=== PATIENT | female | born 1980 | race Caucasian/White ===

== ENCOUNTER 2024-09-20 09:41 | Emergency (ER) | payer OTHER, SELFPAY ==
--- NOTE | ~2024-09-20 | XR_ITS ---
EXAMINATION: XR shoulder LT min 2V DATE: 09/20/2024 11:24 INDICATION: Left shoulder pain post fall TECHNIQUE: AP internally and externally rotated and transscapular Y views of the left shoulder were o btained. COMPARISON: None FINDINGS: Normal alignment. No fracture. Glenohumeral joint appears normal but is insufficiently profiled to a ccurately assess for joint space narrowing. Mild acromioclavicular osteoarthritis. Soft tissues are u nremarkable. Visualized portions of the lungs are clear. IMPRESSION: Mild left acromioclavicular osteoarthritis. No acute osseous abnormality. Reviewed, dictated and finalized at location A. INE BEADING MACHINE TENDER
--- NOTE | ~2024-09-20 | XR_ITS ---
EXAMINATION: XR hip LT 2V w AP pelvis, XR femur LT min 2V DATE: 09/20/2024 11:24 INDICATION: Left hip pain post fall TECHNIQUE: 1. Anteroposterior view of the pelvis and anteroposterior and frog-leg lateral views of the left hip were obtained. 2. AP and lateral views of the left femur were obtained on overlapping proximal and distal images. COMPARISON: None. FINDINGS: Alignment is normal. No fracture. Normal joint space at the left knee and bilateral hip joints mild o steoarthritis at the bilateral sacroiliac joints. T-shaped IUD projecting over the central pelvis. IMPRESSION: 1. Mild bilateral sacral back osteoarthritis. No acute osseous abnormality in the pelvis or left thig h. 2. IUD in expected position. Reviewed, dictated and finalized at location A. TRUCTION CHECKER IMPRESSION: 1. Mild bilateral sacral back osteoarthritis. No acute osseous abnormality in t he pelvis or left thigh. 2. IUD in expected position.
--- NOTE | ~2024-09-20 | US_ITS ---
EXAMINATION: US pelvic complete DATE: 09/20/2024 12:08 INDICATION: Left lower quadrant abdominal pain. Assess for torsion. TECHNIQUE: Multiple transabdominal sonographic images of the pelvis were obtained. COMPARISON: None. FINDINGS: The uterus measures 9.5 x 6.2 x 6.3 cm. There is a 5.2 cm hypoechoic mass consistent with a uterine f ibroid in the posterior uterine body which is mass effect upon the more anterior endometrial complex. The endometrial complex measures 4 mm in thickness which is normal. There is a second smaller 2.6 si milar hypoechoic fibroid at the uterine fundus. The right ovary measures 2.5 x 1.8 x 1.2 cm. The lef t ovary measures 1.9 x 1.4 x 1.4 cm. Prabhu of flow with arterial waveforms identified in both ovaries o n color Doppler. There is no free fluid in the pelvis. IMPRESSION: 1. Fibroid uterus. Normal ovaries. Reviewed, dictated and finalized at location A. SOFTWARE DEVELOPER
[2024-09-20 10:04] VITALS: BP 114/73; PULSE 75; RESP 20; TEMP 36.4; O2SAT 99
--- NOTE | 2024-09-20 10:53 | ED.GENADULT ---
HPI - General Adult General Chief complaint: Abdominal Pain Stated complaint: left abd pain, left arm pain r/t fall Time Seen by Provider: 09/20/24 10:43 History of Present Illness HPI narrative: 44-year-old female present to the emergency department for evaluation for multiple complaints. Patient states she has been having left lower quadrant pain for the past 4 days. Patient's suspected this was an ovarian cyst. Patient denies any prior history of ovarian cyst. Patient suspects she may have had some hematuria but is unsure. Patient is also complaining of left shoulder and left hip pain after having a ground level fall. Patient reports she was trying to put away her bowling balls when she slipped on the wet garage floor. Related Data Allergies Allergy/AdvReac Type Severity Reaction Status Date / Time No Known Allergies Allergy Verified 09/20/24 12:01 Review of Systems Review of Systems: All systems reviewed & are unremarkable except as noted in HPI and below Exam Narrative: APPEARANCE: Well appearing, no pain, no distress, well-nourished. HEAD: normocephalic, atraumatic. EYES: PERRLA/EOMI, conjunctivae clear. NOSE: Normal no drainage EARS:TMS clear with good light reflex. THROAT: Pharynx clear, no exudate. NECK: Supple. No adenopathy, no masses. RESPIRATORY: Airway patent, respirations nonlabored. Clear to auscultation bilaterally, no rales, rhonchi, wheezing. CARDIOVASCULAR: Regular rate and rhythm without murmurs rubs or gallops. ABDOMINAL: Soft, nontender, nondistended, normal bowel sounds MUSCULOSKELETAL: Tenderness to left hip left femur and left shoulder with limited range of motion of hip and shoulder NEURO: Alert. Cranial nerves II through XII intact. Grossly intact SKIN: Warm, dry. Normal Color Course Vital Signs Vital signs: Vital Signs Temperature 97.6 F 09/20/24 10:04 Pulse Rate 75 09/20/24 10:04 Respiratory Rate 20 09/20/24 10:04 Blood Pressure 114/73 09/20/24 10:04 Pulse Oximetry 99 09/20/24 10:04 Temperature 97.6 F 09/20/24 10:04 Pulse Rate 62 09/20/24 12:52 Respiratory Rate 16 09/20/24 12:52 Blood Pressure 133/80 09/20/24 12:52 Pulse Oximetry 97 09/20/24 12:[address] [facility] Narrative Medical decision making narrative: 44-year-old female presenting to the emergency department for evaluation for left shoulder left hip and left leg pain along with left lower quadrant pain. Patient's urine was concerning for urinary tract infection. Patient was treated with a dose of IV Rocephin. Patient is currently afebrile with a minor leukocytosis of 10.3 and a stable hemoglobin of 13, no significant abnormalities on the CMP UA was positive for infection but negative for red blood cells low concern for ureteral calculi. The ultrasound was ordered due to the left lower quadrant pain and was positive for fibroids but had normal ovaries. Patient was updated on results of workup. Patient is comfortable plan for discharge and close follow-up. Differential Diagnosis Differential Diagnosis: Ovarian torsion, urinary tract infection, ureteral calculi, shoulder injury, knee injury, hip injury Vital Signs Vital Signs: Vital Signs Temperature 97.6 F 09/20/24 10:04 Pulse Rate 75 09/20/24 10:04 Respiratory Rate 20 09/20/24 10:04 Blood Pressure 114/73 09/20/24 10:04 Pulse Oximetry 99 09/20/24 10:04 Temperature 97.6 F 09/20/24 10:04 Pulse Rate 62 09/20/24 12:52 Respiratory Rate 16 09/20/24 12:52 Blood Pressure 133/80 09/20/24 12:52 Pulse Oximetry 97 09/20/24 12:52 Lab Data Lab results reviewed: Yes I reviewed the patient's lab results. 09/20/24 11:25 09/20/24 11:25 Labs: Lab Results 09/20/24 09/20/24 Range/Units 11:25 11:26 WBC 10.3 H (4.5-10.0) K/mm3 RBC 4.34 (4.2-5.4) M/mm3 Hgb 13.0 (12.0-15.0) g/dL Hct 39.0 (37.0-47.0) % MCV 89.9 (80-100) fl MCH 30.0 (26-34) pg MCHC 33.3 (32-36) g/dl RDW 13.2 (11.5-14.5) % Plt Count 412 H (150-375) k/mm3 MPV 8.8 (7.4-10.4) fl Immature Gran % (Auto) 0.4 (0-0.5) % Neut % (Auto) 64.8 (45.5-73.1) % Lymph % (Auto) 21.4 (18.3-44.2) % [place] % (Auto) 9.2 H (2.6-8.5) % Eos % (Auto) 3.3 (0-4.4) % Baso % (Auto) 0.9 (0.2-1.2) % Lymph # (Auto) 2.21 (0.9-3.2) K/mm3 [place] # (Auto) 1.0 H (0.1-0.6) K/mm3 Eos # (Auto) 0.3 (0-0.3) K/mm3 Baso # (Auto) 0.1 (0.0-0.1) K/mm3 Abs Immat Gran (auto) 0.04 H (0.00-0.031) K/mm3 Absolute Neuts (auto) 6.7 (1.3-6.7) K/mm3 Absolute Nucleated RBC 0.000 (0.0-0.012) K/mm3 Nucleated RBC % 0.0 (0.0-0.2) % Sodium 139 (137-145) mmol/L Potassium 4.7 (3.4-5.0) mmol/L Chloride 106 (98-107) mmol/L Carbon Dioxide 20 L (22-30) mmol/L Anion Gap 13 H (4-12) mmol/L BUN 16 (7-17) mg/dL Creatinine 0.47 L (0.7-1.0) mg/dL Estim Creat Clear Calc Not Reportable Estimated GFR > 60 (59 - ) Glucose 95 (65-110) mg/dL Calcium 9.6 (8.4-10.2) mg/dL Total Bilirubin 0.5 (0.2-1.3) mg/dL AST 26 (14-36) U/L ALT 17 (6-35) U/L Alkaline Phosphatase 74 (38-126) U/L Total Protein 8.0 (6.3-8.2) g/dL Albumin 4.6 (3.5-5.1) g/dL Urine Color Yellow (Yellow) Urine Appearance Clear (Clear) Urine pH 5.0 (5.0-9.0) Ur Specific [place] 1.019 (1.001-1.035) Urine Protein Negative (Negative) mg/dL Urine Glucose (UA) Negative (Negative) mg/dL Urine Ketones Negative (Negative) mg/dL Ur Blood (Man) 1+ H (Negative) Urine Nitrate Negative (Negative) Urine Bilirubin Negative (Negative) Urine Urobilinogen 0.2 (<2.0) mg/dL Leukocyte Esterase Rfl 1+ H (Negative) RAVI/UL Urine RBC 0-2 (0-2) /hpf Urine WBC 21-50 H (0-3) /hpf Ur Squamous Epith Cells Occasional (Few) /hpf Urine Bacteria 1+ H /hpf Urine Casts 0-2 Urine Test Negative Imaging Data Radiologist's impression: Impressions Femur X-Ray 09/20/24 11:28 IMPRESSION: 1. Mild bilateral sacral back osteoarthritis. No acute osseous abnormality in the pelvis or left thigh. 2. IUD in expected position. Hip/Pelvis X-Ray 09/20/24 11:28 IMPRESSION: 1. Mild bilateral sacral back osteoarthritis. No acute osseous abnormality in the pelvis or left thigh. 2. IUD in expected position. Shoulder X-Ray 09/20/24 11:30 IMPRESSION: Mild left acromioclavicular osteoarthritis. No acute osseous abnormality. Pelvis Ultrasound 09/20/24 12:13 IMPRESSION: 1. Fibroid uterus. Normal ovaries. Discharge Plan Discharge Clinical Impression: UTI (urinary tract infection), Acute shoulder pain, Acute pain of left hip Patient Disposition: Home, Self-Care Condition: Stable Instructions: Antibiotic Form, Urinary Tract Infection in Women (DC) Additional Instructions: Tylenol and ibuprofen for pain control. Antibiotic as directed until completed. Have close follow-up with your primary care physician. If you have any worsening symptoms then please call or return to the emergency department. Patient Language: Gibraltarian Prescriptions: New cephalexin 500 mg capsule 500 mg PO Q8H 7 Days Qty: 21 0RF Follow-up/Referrals: PHYSICIAN,[facility] [Primary Care Provider] -
--- OUTSIDE RECORDS SUMMARY | 2024-09-20 11:01 | XMS_ITS | Clinical Summary ---
Author Organization [facility] Address [address] [place] [id number] Care Team Providers Care Superintendent Car Construction Name Role Phone Pawan Smiley Bakari MOPHEAD SEWER Primary Care Provider [phone] Allergies Active Allergy Reactions Criticality Noted Date Comments Apixaban Other (see comment) 07/12/2023 ? Blood thinner after D&C- Weakness-UNSURE WHICH BLOOD THINNER IT ACTUALLY IS Medications escitalopram (LEXAPRO) 10 MG tabletIndication s:Depression with anxiety Take 1 tablet (10 mg total) by mouth daily. 30 tablet 1 3 Active Additional Information Patient not taking.Reported on 08/27/2023 amLODIPine (NORVASC) 5 MG tabletIndication s:Primary hypertension Take 1 tablet (5 mg total) by mouth daily. 30 tablet 1 3 Active Additional Information Patient not taking.Reported on 08/27/2023 busPIRone (BUSPAR) 10 MG tabletIndication s:Anxiety Take 1 tablet (10 mg total) by mouth 2 (two) times daily. 60 tablet 1 4 Active Active Problems No known active problems Family History Medical History Relation Comments Cancer Father prostate Heart Attack Mother Relation Status Comments Father Mother Alive Social History Tobacco Use Types Packs/Day Years Used Date Smoking Tobacco: Every Day Cigarettes 0.5 15 Passive Smoke Exposure: Current Smokeless Tobacco: Never Tobacco Cessation:Ready to Q uit: No; Counseling Given: Yes Alcohol Use Standard Drinks/Week Comments Yes 16.7 (1 standard drink = 0.6 oz pure alcohol) beer PHQ-2 Answer Date Recorded Patient Health Questionnaire-2 Score 6 07/12/2023 Comments No Sex and Gender Information Value Date Recorded Sex Assigned at Not on file Legal Sex Female 9:38 AM PLAN EXAMINER Gender Identity Not on file Sexual Orientation Not on file Last Filed Vital Signs Vital Sign Reading Time Taken Comments Blood Pressure 147/90 08/27/2023 3:26 PM PLAN EXAMINER Pulse 69 08/27/2023 3:26 PM PLAN EXAMINER Temperature 36.3 C (97.3 F) 08/27/2023 3:26 PM PLAN EXAMINER Respiratory Rate 20 08/27/2023 3:26 PM PLAN EXAMINER Oxygen Saturation 99% 08/27/2023 3:26 PM PLAN EXAMINER Inhaled Oxygen Concentration - - Weight 65.4 kg (144 lb 3.2 oz) 08/27/2023 3:26 P M PLAN EXAMINER Height 139.7 cm (4' 7 ) 08/27/2023 3:26 PM PLAN EXAMINER Body Mass Index 33.52 08/27/2023 3:26 PM PLAN EXAMINER Plan of Treatment Health Maintenance Due Date Last Done Comments Cervical Cancer Screening Pa p Smear (Age 30 to 64) Every 3 Years 1982 Pneumococcal Vaccine: Pediatrics (0 to 5 Years) and At-Risk Patients (6 to 64 Years) (1 of 2 - PCV) 1988 Hepatitis C 2000 DTaP, Tdap and Td Vaccines ( 1 - Tdap) 2001 Hepatitis B Vaccines (1 of 3 - 19+ 3-dose series) 2001 Cervical Cancer Screening Pa p with HPV Testing (Age 30 to 64) Every 5 Years 2012 Cervical Cancer Screening wi th HPV 2012 Mammogram Screening 2022 COVID-19 Vaccine (3 - 2023-2 5 season) 2024 11/02/2020, 10/10/2020 Influenza Adult (#1) 2024 Annual Physical 07/12/2024 07/12/2023 PHQ-2 (Physician Belkofski) 07/30/2024 07/12/2023 HPV Vaccines Aged Out No longer eligi ble based on patient's age to complete this topic Meningococcal B Vaccine Aged Out No l onger eligible based on patient's age to complete this topic Meningococcal Vaccine Aged Out No noa savage eligible based on patient's age to complete this topic RSV Immunizations Under 20 Months Aged Out No longer eligible b ased on patient's age to complete this topic Insurance [employer] Care Teams Superintendent Car Construction Relationship Specialty Start Date End Date Smiley Villalta NP [address] [place] [address] PCP - General Nurse Practitioner Family 07/12/23
[2024-09-20 11:34] LABS: Basophils Absolute Auto 0.1 K/mm3 (0.0-0.1); Basophils Percent Auto 0.9 % (0.2-1.2); Eosinophils Absolute Auto 0.3 K/mm3 (0-0.3); Eosinophils Percent Auto 3.3 % (0-4.4); Immature Granulocyte Absolute 0.04 K/mm3 (0.00-0.031); Immature Granulocyte Percent A 0.4 % (0-0.5); Lymphocytes Absolute Auto 2.21 K/mm3 (0.9-3.2); Lymphocytes Percent Auto 21.4 % (18.3-44.2); Mean Corpuscular HGB Conc 33.3 g/dl (32-36); Mean Corpuscular Volume 89.9 fl (80-100); Mean Platelet Volume 8.8 fl (7.4-10.4); Monocytes Percent Auto 9.2 % (2.6-8.5); Neutrophils Absolute Auto 6.7 K/mm3 (1.3-6.7); Neutrophils Percent Auto 64.8 % (45.5-73.1); Platelet Count Result 412 k/mm3 (150-375); Red Blood Count 4.34 M/mm3 (4.2-5.4); Red Cell Distribution Width 13.2 % (11.5-14.5); White Blood Count 10.3 K/mm3 (4.5-10.0)
[2024-09-20 11:44] LABS: Add Urine Microscopic? YES; Appearance Urine Clear (Clear); Bacteria Urine 1+ /hpf; Bilirubin Urine Negative (Negative); Blood Urine 1+ (Negative); Color Urine Yellow (Yellow); Glucose Urine UA Negative (Negative); Ketones Urine Negative (Negative); Leukocyte Esterase Ur 1+ LEU/UL (Negative); Nitrate Urine Negative (Negative); Non Pathogenic Casts 0-2; Protein Urine Negative (Negative); RBC Urine 0-2 /hpf (0-2); Specific Grav Ur 1.019 (1.001-1.035); Squamous Epithelial Cell Urine Occasional /hpf (Few); Urobilinogen Urine 0.2 mg/dL (<2.0); WBC Urine 21-50 /hpf (0-3)
[2024-09-20 11:57] LABS: Alanine Aminotransferase 17 U/L (6-35); Albumin Level 4.6 g/dL (3.5-5.1); Alkaline Phosphatase 74 U/L (38-126); Anion Gap 13 mmol/L (4-12); Aspartate Amino Transferase 26 U/L (14-36); Bilirubin,Total 0.5 mg/dL (0.2-1.3); Blood Urea Nitrogen 16 mg/dL (7-17); Calcium 9.6 mg/dL (8.4-10.2); Carbon Dioxide 20 mmol/L (22-30); Chloride 106 mmol/L (98-107); Estimated Glomerular Filt Rate > 60; Glucose 95 mg/dL (65-110); Potassium 4.7 mmol/L (3.4-5.0); Sodium 139 mmol/L (137-145)
--- NOTE | 2024-09-20 12:02 | PC.NURSE ---
Lab called to add on urine test.
[2024-09-20 12:03] VITALS: BP 132/85; PULSE 66; RESP 16; O2SAT 99
[2024-09-20] MEDS: HYDROcodone/acetaminophen (*CRX) 5-325 MG TABLET 1 TAB PO (12:11)
[2024-09-20 12:18] LABS: Pregnancy On Board Control Positive; Urine Pregnancy Test Negative
[2024-09-20 12:52] VITALS: BP 133/80; PULSE 62; RESP 16; O2SAT 97
== END 2024-09-20 12:55 | disposition home or self-care (01) ==
PROVIDERS: Emergency Provider Emergency Medicine
DX: N39.0 Urinary tract infection, site not specified (principal); S49.92XA Unspecified injury of left shoulder and upper arm, initial encounter; S79.912A Unspecified injury of left hip, initial encounter; M47.898 Other spondylosis, sacral and sacrococcygeal region; M19.012 Primary osteoarthritis, left shoulder; D25.9 Leiomyoma of uterus, unspecified; Z97.5 Presence of (intrauterine) contraceptive device; W01.0XXA Fall on same level from slipping, tripping and stumbling without subsequent striking against object, initial encounter
CPT/HCPCS: 36415; 73030; 73502; 73552; 76856; 80053; 81001; 81025; 85025; 87086; 96365; 99284; A9270; J0696